=== PATIENT | female | born 1975 | race American Indian/Alaskan Native ===

== ENCOUNTER 2020-09-16 15:43 | Emergency (ER) | payer SELFPAY ==
[2020-09-16 19:16] VITALS: BP 149/90
[2020-09-16 20:49] LABS: Basophils % (Auto) 0.3 % (0.0-1.8); Eosinophils # (Auto) 0.1 K/mm3 (0.0-0.4); Eosinophils % (Auto) 0.4 % (0.0-4.3); Hematocrit 24.6 % (30.3-42.9); Hemoglobin 7.8 gm/dl (10.1-14.3); Lymphocytes # (Auto) 1.6 K/mm3 (1.2-5.4); Lymphocytes % (Auto) 10.9 % (13.4-35.0); Mean Corpuscular HGB Conc 32 % (30-34); Monocytes # (Auto) 1.1 K/mm3 (0.0-0.8); Monocytes % (Auto) 7.4 % (0.0-7.3); Platelet Count 724 K/mm3 (140-440); Red Blood Count 3.58 M/mm3 (3.65-5.03); Red Cell Distribution Width 19.3 % (13.2-15.2)
[2020-09-16 21:00] LABS: Mean Corpuscular Volume 69 fl (79-97)
--- NOTE | 2020-09-16 21:09 | Emergency Department Report ---
- General Chief complaint: Skin/Abscess/Foreign Body Stated complaint: LEG/FOOT SWELLING TYPE 2 DIABETIC Time Seen by Provider: 09/16/20 20:04 Source: patient Mode of arrival: Ambulatory Limitations: No Limitations - History of Present Illness Initial comments: Patient is a 44-year-old female presents emergency room with complaints of multiple boils in multiple locations that initially began 2 weeks ago. She states initially began on her left thigh and left calf. She states yesterday she began to notice the boils to her bilateral buttocks. She states that she has seen a small amount of white pus drainage. Patient states that she is also had some bilateral lower extremity swelling over the last couple weeks but it is worse on the left. She denies any fever, nausea, vomiting, diarrhea, chills. Past medical history of diabetes. No allergies to medications. She is c urrently on her menstrual cycle. - Related Data Previous Rx's Medication Instructions Recorded Last Taken Type Neomycin/Bacitracin/Polymyxinb 1 applicatio TP BID #14 oint...g. 09/16/20 Unknown Rx [Triple Antibiotic Ointment] Sulfamethoxazole/Trimethoprim 1 each PO BID 10 Days #20 tablet 09/16/20 Unknown Rx [Bactrim DS TAB] Allergies Allergy/AdvReac Type Severity Reaction Status Date / Time No Known Drug Allergies Allergy Unknown Verified 09/16/20 22:20 morphine AdvReac Itching Verified 09/16/20 22:20 Abscess Boil HPI - HPI Chief Complaint: Skin/Abscess/Foreign Body Stated Complaint: LEG/FOOT SWELLING TYPE 2 DIABETIC Time Seen by Provider: 09/16/20 20:04 Home Medications: Previous Rx's Medication Instructions Recorded Last Taken Type Neomycin/Bacitracin/Polymyxinb 1 applicatio TP BID #14 oint...g. 09/16/20 Unknown Rx [Triple Antibiotic Ointment] Sulfamethoxazole/Trimethoprim 1 each PO BID 10 Days #20 tablet 09/16/20 Unknown Rx [Bactrim DS TAB] Allergies/Adverse Reactions: Allergies Allergy/AdvReac Type Severity Reaction Status Date / Time No Known Drug Allergies Allergy Unknown Verified 09/16/20 22:20 morphine AdvReac Itching Verified 09/16/20 22:20 ED Review of Systems ROS: Stated complaint: LEG/FOOT SWELLING TYPE 2 DIABETIC Other details as noted in HPI Comment: All other systems reviewed and negative ED Past Medical Hx - Past Medical History Previous Medical History?: Yes Hx Diabetes: Yes - Surgical History Past Surgical History?: Yes Additional Surgical History: C-Sec X 2 - Social History Smoking Status: Never Smoker Substance Use Type: None - Medications Home Medications: Home Medications Medication Instructions Recorded Confirmed Last Taken Type Neomycin/Bacitracin/Polymyxinb 1 applicatio TP BID #14 oint...g. 09/16/20 Unknown Rx [Triple Antibiotic Ointment] Sulfamethoxazole/Trimethoprim 1 each PO BID 10 Days #20 tablet 09/16/20 Unknown Rx [Bactrim DS TAB] ED Physical Exam - General Limitations: No Limitations General appearance: alert, in no apparent distress - Head Head exam: Present: atraumatic, normocephalic - Eye Eye exam: Present: normal appearance - ENT ENT exam: Present: mucous membranes moist - Respiratory Respiratory exam: Present: normal lung sounds bilaterally. Absent: respiratory distress, wheezes, rales, rhonchi, stridor, chest wall tenderness, accessory muscle use, decreased breath sounds, prolonged expiratory - Cardiovascular Cardiovascular Exam: Present: regular rate, normal rhythm, normal heart sounds. Absent: systolic murmur, diastolic murmur, rubs, gallop - Back Exam Back exam: Present: other (small healing area of induration to the left lateral calf, there is non pitting edema to the BLE, left greater than right, no calf ttp, neurovascularly intact, FROM of the BLE) - Neurological Exam Neurological exam: Present: alert, oriented X3 - Psychiatric Psychiatric exam: Present: normal affect, normal mood - Skin Skin exam: Present: warm, dry, other (network planner: ricardo, ep technologist, there are multiple areas of induration to the inferior portion of the bilateral gluteal region, small pustules present, no drainable central abscess at this time, no active drainage, no necrosis, no perineum or perianal involvement) ED Course Vital Signs 09/16/20 19:10 Temperature 99.2 F Pulse Rate 103 H Respiratory 20 Rate Blood Pressure 149/90 O2 Sat by Pulse 98 Oximetry ED Medical Decision Making - Lab Data Result diagrams: 09/16/20 20:19 09/16/20 20:19 Lab Results 09/16/20 09/16/20 Range/Units 20:19 20:19 WBC 14.5 H (4.5-11.0) K/mm3 RBC 3.58 L (3.65-5.03) M/mm3 Hgb 7.8 L (10.1-14.3) gm/dl Hct 24.6 L (30.3-42.9) % MCV 69 L (79-97) fl MCH 22 L (28-32) pg MCHC 32 (30-34) % RDW 19.3 H (13.2-15.2) % Plt Count 724 H (140-440) K/mm3 Lymph % (Auto) 10.9 L (13.4-35.0) % Crane % (Auto) 7.4 H (0.0-7.3) % Eos % (Auto) 0.4 (0.0-4.3) % Baso % (Auto) 0.3 (0.0-1.8) % Lymph # (Auto) 1.6 (1.2-5.4) K/mm3 Crane # (Auto) 1.1 H (0.0-0.8) K/mm3 Eos # (Auto) 0.1 (0.0-0.4) K/mm3 Baso # (Auto) 0.0 (0.0-0.1) K/mm3 Seg Neutrophils % 81.0 H (40.0-70.0) % Seg Neutrophils # 11.7 H (1.8-7.7) K/mm3 Sodium 127 L (137-145) mmol/L Potassium 4.8 (3.6-5.0) mmol/L Chloride 91.6 L (98-107) mmol/L Carbon Dioxide 26 (22-30) mmol/L Anion Gap 14 mmol/L BUN 5 L (7-17) mg/dL Creatinine 0.6 (0.6-1.2) mg/dL Estimated GFR > 60 ml/min BUN/Creatinine Ratio 8 % Glucose 325 H (65-100) mg/dL Calcium 8.7 (8.4-10.2) mg/dL Total Bilirubin 0.40 (0.1-1.2) mg/dL AST 11 (5-40) units/L ALT 8 (7-56) units/L Alkaline Phosphatase 131 H (35-129) units/L NT-Pro-B Natriuret Pep 129.4 (0-450) pg/mL Total Protein 7.9 (6.3-8.2) g/dL Albumin 3.1 L (3.9-5) g/dL Albumin/Globulin Ratio 0.6 % - Radiology Data Radiology results: report reviewed Ordering Physician: AVNI JERNIGAN Date of Service: 09/16/20 Procedure(s): VL venous duplex LE BILAT Accession Number(s): [id number] cc: AVNI JERNIGAN . DUPLEX DOPPLER LOWER EXTREMITY VEINS, BILATERAL INDICATION / CLINICAL INFORMATION: BLE edema, left greater than right. TECHNIQUE: Duplex doppler imaging was performed through the veins of both lower extremities using venous compression and other maneuvers. COMPARISON: None available. FINDINGS: RIGHT COMMON FEMORAL VEIN: Negative. RIGHT FEMORAL VEIN: Negative. RIGHT POPLITEAL VEIN: Negative. RIGHT CALF VEINS: Negative. LEFT COMMON FEMORAL VEIN: Negative. LEFT FEMORAL VEIN: Negative. LEFT POPLITEAL VEIN: Negative. LEFT CALF VEINS: Negative. ADDITIONAL FINDINGS: None. IMPRESSION: 1. No sonographic evidence for DVT in either lower extremity. Signer Name: Adalid Holbrook MD Signed: 09/16/2020 9:39 PM Workstation Name: [id number] Transcribed By: RH Dictated By: ADALID HOLBROOK III Electronically Authenticated By: ADALID HOLBROOK III Signed Date/Time: 09/16/202138 DD/ 38 TD/TT: - Medical Decision Making Patient is a 44-year-old female presents emergency room with complaints of multiple boils in multiple locations that initially began 2 weeks ago. She states initially began on her left thigh and left calf. She states yesterday she began to notice the boils to her bilateral buttocks. She states that she has seen a small amount of white pus drainage. Patient states that she is also had some bilateral lower extremity swelling over the last couple weeks but it is worse on the left. She denies any fever, nausea, vomiting, diarrhea, chills. Past medical history of diabetes. No allergies to medications. She is currently on her menstrual cycle. Vitals are stable. On exam:network planner: MAHI silva, there are multiple areas of induration to the inferior portion of the bilateral gluteal region, small pustules present, no drainable central abscess at this time, no active drainage, no necrosis, no perineum or perianal involvement, small healing area of induration to the left lateral calf, there is non pitting edema to the BLE, left greater than right, no calf ttp, neurovascularly intact, FROM of the BLE. Labs with leukocytosis. Patient also has microcytic anemia, will have patient follow-up with primary care doctor. Labs show evidence of mild dehydration. Patient given 1 L normal saline and IV clindamycin. Examination appears consistent with bilateral gluteal cellulitis, no central abscess at this time no perianal or perineal involvement. Patient given prescription for Bactrim and triple antibiotic ointment. Advised patient Please use medication as prescribed. Please do sitz bath's. Follow-up with your primary care doctor for reexamination. Return the emergency room immediately for any new or worsening symptoms including but not limited to worsening swelling, worsening redness, fever, chills, worsening drainage, vomiting, etc. Critical care attestation.: If time is entered above; I have spent that time in minutes in the direct care of this critically ill patient, excluding procedure time. ED Disposition Clinical Impression: Dehydration, Hyperglycemia, Leg swelling Cellulitis Qualifiers: Site of cellulitis: buttock Qualified Code(s): L03.317 - Cellulitis of buttock Disposition: DC-01 TO HOME OR SELFCARE Is pt being admited?: No Does the pt Need Aspirin: No Condition: Stable Instructions: How to Take a Sitz Bath, Hyperglycemia, [id number], Cellulitis, Adult, [id number] Additional Instructions: Please use medication as prescribed. Please do sitz bath's. Follow-up with your primary care doctor for reexamination. Return the emergency room immediately for any new or worsening symptoms including but not limited to w orsening swelling, worsening redness, fever, chills, worsening drainage, vomiting, etc. Prescriptions: Sulfamethoxazole/Trimethoprim [Bactrim DS TAB] 1 each PO BID 10 Days #20 tablet Neomycin/Bacitracin/Polymyxinb [Triple Antibiotic Ointment] 1 applicatio TP BID #14 oint...g. Referrals: FARIBA DO MD [Staff Physician] - 3-5 Days [facility] [Provider Group] - 3-5 Days Time of Disposition: 22:12 Print Language: MAURITANIAN
[2020-09-16 21:25] LABS: Alanine Aminotransferase 8 units/L (7-56); Albumin 3.1 g/dL (3.9-5); BUN/Creatinine Ratio 8; Blood Urea Nitrogen 5 mg/dL (7-17); Calcium 8.7 mg/dL (8.4-10.2); Hemolysis Index 0
[2020-09-16] MEDS ORDERED: SODIUM CHLORIDE 0.9% 1000 ML 1,000 ML IV ONE (21:38)
--- NOTE | 2020-09-16 21:44 | Vascular Lab Report ---
. DUPLEX DOPPLER LOWER EXTREMITY VEINS, BILATERAL INDICATION / CLINICAL INFORMATION: BLE edema, left greater than right. TECHNIQUE: Duplex doppler imaging was performed through the veins of both lower extremities using venous juventino jethro and other maneuvers. COMPARISON: None available. FINDINGS: RIGHT COMMON FEMORAL VEIN: Negative. RIGHT FEMORAL VEIN: Negative. RIGHT POPLITEAL VEIN: Negative. RIGHT CALF VEINS: Negative. LEFT COMMON FEMORAL VEIN: Negative. LEFT FEMORAL VEIN: Negative. LEFT POPLITEAL VEIN: Negative. LEFT CALF VEINS: Negative. ADDITIONAL FINDINGS: None. IMPRESSION: 1. No sonographic evidence for DVT in either lower extremity. Signer Name: Red Holbrook MD Signed: 09/16/2020 9:39 PM Workstation Name: [id number]
[2020-09-16] MEDS ORDERED: CLINDAMYCIN 600 MG/50 mL 600 MG/50 ML BAG IV ONE (23:05)
== END 2020-09-17 00:05 | disposition home or self-care (01) ==
LOC: ED 15:43
DX: E86.0 Dehydration (principal); L03.317 Cellulitis of buttock; E11.65 Type 2 diabetes mellitus with hyperglycemia; M79.89 Other specified soft tissue disorders; Z79.899 Other long term (current) drug therapy; Z88.6 Allergy status to analgesic agent; Z88.8 Allergy status to other drugs, medicaments and biological substances
CPT/HCPCS: 36415; 80053; 83880; 85025; 93970; 96365; 99284; J7030